=== PATIENT | female | born 1990 | race Caucasian/White ===

== ENCOUNTER 2017-05-29 20:16 | Outpatient (CLI) | payer MEDICAID ==
[2017-05-29 21:58] LABS: ADD UMIC NO; UR ASCORBIC ACID NEGATIVE (NEGATIVE); UR BILIRUBIN (Dip) NEGATIVE (NEGATIVE); UR BLOOD (Dip) NEGATIVE (NEGATIVE); UR CLARITY CLEAR (CLEAR); UR COLOR YELLOW (YELLOW); UR GLUCOSE (Dip) NEGATIVE (NEGATIVE); UR KETONES (Dip) NEGATIVE (NEGATIVE); UR LEUKOCYTE ESTERASE (Dip) NEGATIVE Leu/ul (NEGATIVE); UR NITRITE (Dip) NEGATIVE (NEGATIVE); UR TOTAL PROTEIN (Dip) NEGATIVE (NEGATIVE); UR UROBILINOGEN (Dip) NEGATIVE (NEGATIVE)
[2017-05-29 22:54] LABS: ADD MAN DIFF? NO
[2017-05-29 23:00] LABS: BASOPHILS % 0.4 % (0.0-2.0); EOSINOPHILS # 0.1 10^3/ul (0.0-0.5); EOSINOPHILS % 1.4 % (0.0-7.0); HEMATOCRIT 31.1 % (37.0-47.0); HEMOGLOBIN 10.9 g/dl (12.0-16.0); LYMPHOCYTES # 2.1 10^3/ul (0.8-2.9); LYMPHOCYTES % 24.9 % (15.0-51.0); MEAN CORPUSCULAR HEMOGLOBIN 33.5 pg (29.0-33.0); MEAN CORPUSCULAR VOLUME 95.7 fl (82.0-101.0); MEAN PLATELET VOLUME 9.8 fl (7.4-10.4); MONOCYTE # 0.8 10^3/ul (0.3-0.9); NEUTROPHIL # 5.4 10^3/ul (1.6-7.5); NEUTROPHILS % 63.4 % (39.0-77.0); PLATELET COUNT 248 10^3/UL (140-415); RED BLOOD COUNT 3.25 10^6/ul (4.20-5.40); RED CELL DISTRIBUTION WIDTH 12.8 % (11.5-14.5)
[2017-05-29 23:00] LABS: WHITE BLOOD COUNT 8.6 10^3/ul (4.8-10.8)
== END 2017-05-30 00:32 | disposition home or self-care (01) ==
LOC: OBT 20:16 → L-D 20:18
DX: O9A.212 Injury, poisoning and certain other consequences of external causes complicating pregnancy, second trimester (principal); R10.9 Unspecified abdominal pain; W50.0XXA Accidental hit or strike by another person, initial encounter; Y92.89 Other specified places as the place of occurrence of the external cause; Z3A.26 26 weeks gestation of pregnancy
CPT/HCPCS: 36415; 76815; 76817; 81003; 85025; 86850; 86900; 86901

== ENCOUNTER 2017-08-27 10:17 | Inpatient (IN) | payer BC ==
[2017-08-27] MEDS ORDERED: OXYTOCIN 30 UNITS/LR 500 ML IV ×2 (11:30→17:00)
[2017-08-27] MEDS ORDERED: METHYLERGONOVINE 0.2 MG INJ IM ×2 (11:30→17:00)
[2017-08-27] MEDS: LACTATED RINGER'S 1,000 ML IV ×2 (11:30→12:34)
[2017-08-27] MEDS ORDERED: CARBOPROST 250 MCG INJ IM ×2 (11:30→17:00)
[2017-08-27] MEDS ORDERED: CEFAZOLIN 2 GM/50 ML (PMX) 50 ML IV (11:30)
[2017-08-27] MEDS ORDERED: MISOPROSTOL 200 MCG TAB PR ×2 (11:30→17:00)
[2017-08-27 11:40] LABS: ADD MAN DIFF? NO
[2017-08-27 11:49] LABS: WHITE BLOOD COUNT 8.1 10^3/ul (4.8-10.8)
[2017-08-27 11:49] LABS: BASOPHILS % 0.4 % (0.0-2.0); EOSINOPHILS # 0.1 10^3/ul (0.0-0.5); EOSINOPHILS % 0.9 % (0.0-7.0); HEMATOCRIT 31.8 % (37.0-47.0); HEMOGLOBIN 10.5 g/dl (12.0-16.0); LYMPHOCYTES # 1.6 10^3/ul (0.8-2.9); MEAN CORPUSCULAR HEMOGLOBIN 31.3 pg (29.0-33.0); MEAN CORPUSCULAR VOLUME 94.6 fl (82.0-101.0); MEAN PLATELET VOLUME 10.1 fl (7.4-10.4); MONOCYTE # 0.5 10^3/ul (0.3-0.9); MONOCYTES % 6.7 % (0.0-11.0); NEUTROPHIL # 5.7 10^3/ul (1.6-7.5); PLATELET COUNT 260 10^3/UL (140-415); RED BLOOD COUNT 3.36 10^6/ul (4.20-5.40); RED CELL DISTRIBUTION WIDTH 13.6 % (11.5-14.5)
[2017-08-27 12:08] LABS: INR 0.98; PROTIME 13.1 Sec (11.9-14.9)
[2017-08-27 12:09] LABS: PARTIAL THROMBOPLASTIN TIME 25.8 Sec (25.0-35.0)
[2017-08-27] MEDS: CITRIC ACID/SODIUM CITRATE 15 ML CUP PO (12:45)
[2017-08-27] MEDS: FAMOTIDINE 20 MG INJ IV (12:45)
[2017-08-27] MEDS: METOCLOPRAMIDE 10 MG INJ IV (12:46)
[2017-08-27] MEDS ORDERED: morphine SULFATE/PF (10 MG/10 ML) INJ (13:10)
[2017-08-27] MEDS ORDERED: BUPIVACAINE 0.75%/DEXT (SPINAL) 2 ML INJ (13:10)
[2017-08-27] MEDS ORDERED: OXYTOCIN 30 UNITS/LR 1,000 ML IV (13:25)
[2017-08-27 13:45] LABS: HEPATITIS B SURFACE ANTIGEN NEGATIVE (NEGATIVE)
[2017-08-27] MEDS ORDERED: ONDANSETRON 4 MG INJ (13:46)
[2017-08-27] MEDS ORDERED: HYDROmorphONE 1 MG/5 ML IV SYRINGE IV ×3 (14:00)
[2017-08-27] MEDS ORDERED: HYDROmorphONE 0.5 MG/0.5 ML SYG IV ×2 (14:00)
[2017-08-27] MEDS ORDERED: ZOLPIDEM 5 MG TAB PO (14:00)
[2017-08-27] MEDS ORDERED: FENTAnyl 50 MCG/ML VIAL IV ×3 (14:00)
[2017-08-27] MEDS ORDERED: NALOXONE (0.4 MG/ML) INJ IV (14:00)
[2017-08-27] MEDS ORDERED: MEPERIDINE 25 MG INJ IV (14:00)
[2017-08-27] MEDS ORDERED: DIPHENHYDRAMINE 50 MG INJ IV ×2 (14:00)
[2017-08-27] MEDS ORDERED: PROCHLORPERAZINE 10 MG INJ IV (14:00)
[2017-08-27] MEDS ORDERED: ONDANSETRON 4 MG INJ IV ×2 (14:00)
[2017-08-27] MEDS ORDERED: KETOROLAC 30 MG INJ IV (14:00)
[2017-08-27] MEDS: OXYTOCIN 30 UNITS/LR 500 ML IV ×3 (15:58→23:27)
[2017-08-27] MEDS ORDERED: OXYCODONE/ACETAMINOPHEN (5/325) TAB PO ×2 (17:00)
[2017-08-27] MEDS ORDERED: HYDROCODONE/APAP (5/325) TAB PO (17:00)
[2017-08-27] MEDS ORDERED: CEFAZOLIN 1 GM/50 ML (PMX) 50 ML IVPB (19:30)
[2017-08-27 19:54] LABS: RAPID PLASMA REAGIN NONREACTIVE (NR)
[2017-08-27] MEDS: CEFAZOLIN 1 GM/50 ML (PMX) 50 ML IVPB (21:12)
[2017-08-27] MEDS: KETOROLAC 30 MG INJ IV (21:12)
[2017-08-28] MEDS: OXYTOCIN 30 UNITS/LR 500 ML IV ×6 (04:02→20:32)
[2017-08-28] MEDS: SENNA/DOCUSATE NA (8.6MG/50MG) TAB PO ×2 (08:33→20:40)
[2017-08-28 09:14] LABS: ADD MAN DIFF? NO
[2017-08-28 09:22] LABS: WHITE BLOOD COUNT 11.2 10^3/ul (4.8-10.8)
[2017-08-28 09:22] LABS: BASOPHILS % 0.3 % (0.0-2.0); EOSINOPHILS % 0.2 % (0.0-7.0); HEMATOCRIT 29.4 % (37.0-47.0); HEMOGLOBIN 9.5 g/dl (12.0-16.0); LYMPHOCYTES # 1.8 10^3/ul (0.8-2.9); MEAN CORPUSCULAR HGB CONC 32.3 g/dl (32.0-37.0); MEAN CORPUSCULAR VOLUME 92.7 fl (82.0-101.0); MONOCYTE # 0.7 10^3/ul (0.3-0.9); MONOCYTES % 5.8 % (0.0-11.0); NEUTROPHIL # 8.7 10^3/ul (1.6-7.5); NEUTROPHILS % 77.1 % (39.0-77.0); PLATELET COUNT 218 10^3/UL (140-415); RED BLOOD COUNT 3.17 10^6/ul (4.20-5.40); RED CELL DISTRIBUTION WIDTH 13.5 % (11.5-14.5)
[2017-08-28] MEDS: KETOROLAC 30 MG INJ IV (11:33)
[2017-08-28] MEDS: LANOLIN 7 GM TUBE TOP (17:13)
[2017-08-28] MEDS: IBUPROFEN 600 MG TAB PO ×2 (17:13→23:33)
[2017-08-28] MEDS: HYDROCODONE/APAP (5/325) TAB PO (20:40)
[2017-08-29] MEDS: OXYTOCIN 30 UNITS/LR 500 ML IV ×5 (00:32→16:32)
[2017-08-29] MEDS: IBUPROFEN 600 MG TAB PO ×4 (05:40→23:39)
[2017-08-29] MEDS: SENNA/DOCUSATE NA (8.6MG/50MG) TAB PO ×2 (10:05→21:00)
[2017-08-29] MEDS: NA PHOSPHATE/BIPHOS 133 ML ENEMA PR (14:00)
[2017-08-30] MEDS: IBUPROFEN 600 MG TAB PO ×2 (05:27→12:16)
[2017-08-30] MEDS: DIPHTH/TET/ACEL PERTUSS (ADULT) 0.5 ML VIAL IM* (09:00)
[2017-08-30] MEDS: SENNA/DOCUSATE NA (8.6MG/50MG) TAB PO (10:22)
== END 2017-08-30 14:00 | disposition home or self-care (01) | DRG 766 ==
LOC: L-D 10:17 → PP1 17:00
PROVIDERS: Obstetrics & Gynecology
PROC: 10D00Z1 Extraction of Products of Conception, Low, Open Approach (ICD-10-PCS; principal; 2017-08-27 12:30)
PROC: 3E033VJ Introduction of Other Hormone into Peripheral Vein, Percutaneous Approach (ICD-10-PCS; 2017-08-27 12:30)
DX: O34.211 Maternal care for low transverse scar from previous cesarean delivery (principal); Z3A.39 39 weeks gestation of pregnancy; Z37.0 Single live birth
CPT/HCPCS: 85025; 85610; 85730; 86592; 86850; 86900; 86901; 87340; 99464